=== PATIENT | female | born 1995 | race Caucasian/White ===

== ENCOUNTER 2017-12-03 08:21 | Day surgery (SDC) | payer BC, MEDICAID, SELFPAY ==
[2017-12-03 08:48] VITALS: BP 126/75; PULSE 78; RESP 16; TEMP 36.8; O2SAT 100; BMI 27.1
[2017-12-03 08:56] LABS: Absolute Lymphocyte Count 1.23 X10^3/ul (0.83-4.51); Basophil# 0.03 X10^3/uL; Basophil% 0.8 % (0-1); Eosinophil# 0.05 X10^3/uL; Eosinophils% 1.4 % (0-5); Hematocrit 38.9 % (37-47); Hemoglobin 12.6 g/dl (12.0-15.0); Lymphocyte # 1.23 X10^3/ul (4.0); Lymphocyte % 34.5 % (19-41); Mean Corp Hgb Conc 32.4 g/gl (32-36); Mean Corpuscular Hgb 29.6 pg (27.0-32.0); Mean Corpuscular Volume 91.3 fL (81-99); Mean Platelet Vol. 9.1 fl (6.2-12.0); Monocyte# 0.24 X10^3/uL; Monocyte% 6.7 % (0-10); Neutrophil # 2.02 X10^3/uL (2.7-7.7); Neutrophil % 56.6 % (47-70); POSITIVE COUNT NO; POSITIVE DIFFERENTIAL NO; POSITIVE MORPHOLOGY NO; Platelet Count 263 K/mm3 (150-450); RBC Distribution Width CV 16.9 % (11.6-14.6); RBC Distribution Width SD 55.9 fl (35.1-43.9); Red Blood Count 4.26 M/mm3 (4.2-5.4); White Blood Count 3.6 K/mm3 (4.4-11.0)
--- NOTE | 2017-12-03 09:34 | PCM.HP.STD ---
Problem List (1) PMS (premenstrual syndrome) Status: Chronic History of Present Illness Date of Admission: 12/03/17 Chief Complaint: pmdd The patient is a 21 year old F with a history of irregular menses and failed 3 other control therapies. Patient has Down syndrome and after discussing with her parents the decision for Mirena IUD placement was made. Patient has heavy painful periods with emotional changes that interfere with quality of life. Past Medical History Past Medical History (Chronic Problems): Chronic Problems (Last Reviewed 08/11/17 @ 14:34 by Genia Horn) Pulmonary stenosis (Chronic) VSD (ventricular septal defect) (Chronic) ASD (atrial septal defect) (Chronic) Lipoma (Chronic) Tympanic membrane perforation (Chronic) PMS (premenstrual syndrome) (Chronic) Dysmenorrhea (Chronic) Moderate persistent asthma (Chronic) Hypothyroidism (Chronic) CHF (congestive heart failure) (Chronic) Down's syndrome (Chronic) Complicates exam, plan, and care. Medical History: Medical History (Last Reviewed 08/11/17 @ 14:34 by Genia Horn) Pulmonary stenosis (Chronic) I37.0 VSD (ventricular septal defect) (Chronic) Q21.0 ASD (atrial septal defect) (Chronic) Q21.1 black outs in the morning (Acute) Lipoma (Chronic) D17.9 Tympanic membrane perforation (Chronic) H72.90 PMS (premenstrual syndrome) (Chronic) N94.3 Dysmenorrhea (Chronic) N94.6 Moderate persistent asthma (Chronic) J45.40 Hypothyroidism (Chronic) E03.9 CHF (congestive heart failure) (Chronic) I50.9 Down's syndrome (Chronic) Q90.9 Complicates exam, plan, and care. Allergies azithromycin [From Zithromax] Allergy (Verified 12/03/17 08:46) Other intense stomach cramping Cephalosporins Allergy (Verified 12/03/17 08:46) Hives Penicillins Allergy (Verified 12/03/17 08:46) Hives seasonal environmental Allergy (Uncoded 12/03/17 08:46) Other TAPE Allergy (Uncoded 12/03/17 08:46) Other skin breakout Home Medications: Ambulatory Orders Medication Instructions Recorded Levothyroxine [Synthroid] 50 mcg PO DAILY 03/03/14 Polyethylene Glycol 3350 [Miralax] 17 gm PO DAILY 03/03/14 albuterol sulfate HFA 90 1 puff INHALATION Q6H 08/11/17 mcg/actuation aerosol inhaler fexofenadine 180 mg tablet 180 mg PO Q24H 08/11/17 naproxen 250 mg tablet 440 mg PO BID 08/11/17 pimecrolimus 1 % topical cream 1 applic TOPICAL BID 08/11/17 albuterol sulfate 2.5 mg/3 mL 2.5 mg INHALATION Q4H PRN #180 ml 08/17/17 (0.083 %) solution for nebulization budesonide-formoterol HFA 160 2 puff INHALATION BID #1 ea 08/19/17 mcg-4.5 mcg/actuation aerosol inhaler Fluticasone/Salmeterol [Advair 1 puff INHALATION DAILY 11/30/17 500/50 Mcg Diskus] Metronidazole 45 gm TP DAILY 11/30/17 Prednisone 60 mg PO QDAY PRN 11/30/17 Surgical History: Surgical History (Last Updated 08/11/17 @ 14:34 by Genia Horn) H/O heart surgery Z98.890 Smoking Status: Never smoker Tobacco Use: Non-smoker Review of Systems Constitutional: Denies: Fever, Malaise Eyes: Denies: Blurred vision, Vision Change HEENT: Denies: Head Aches, Visual Changes Cardiovascular: Denies: Chest Pain, Palpitations Respiratory: Denies: Cough, Shortness of Breath, Wheezing Gastrointestinal: Denies: Abdominal Pain, Diarrhea, Nausea, Vomiting Genitourinary: Denies: Dysuria, Hematuria Musculoskeletal: Denies: Joint Pain, Muscle pain Skin: Denies: Lesions, Rash Neurological: Denies: Blurred vision, Focal weakness, Headaches Psychiatric: Denies: Anxiety, Depression Endocrine: Denies: Heat/ Cold Intolerance Hematologic/ Lymphatic: Denies: Easy Bruising, Easy Bleeding VTE Information - Inpt Only VTE Present on Admission: No - Physical Exam General: Alert, Cooperative HEENT: Atraumatic, EOMI, Normocephalic Neck: Supple Lungs: Clear to auscultation, Normal air movement Cardiovascular: Regular rate, No murmurs Abdomen: Soft, Non Tender Extremities: No edema, Capillary Refill Less than 3 Seconds Skin: No rashes, No breakdown Musculoskeletal: No Tenderness to Palpation of Joints or Extremities Neurological: Cranial nerves II-XII grossly intact Psych/Mental Status: Normal Affect, Appropriate Vital Signs Temp Pulse Resp BP Pulse Ox 98.2 F 78 16 126/75 H 100 12/03/17 08:48 12/03/17 08:48 12/03/17 08:48 12/03/17 08:48 12/03/17 08:48 Oxygen Delivery Method Room Air Weight: 134 lb 7.712 oz Body Mass Index (BMI) 27.1 Laboratory Tests Past 24 Hrs 12/03/17 12/03/17 08:46 08:46 WBC 3.6 L RBC 4.26 Hgb 12.6 Hct 38.9 MCV 91.3 MCH 29.6 MCHC 32.4 RDW 16.9 H RDW Differential 55.9 H Plt Count 263 MPV 9.1 Immature Gran % (Auto) 0.000 Neut % (Auto) 56.6 Lymph % (Auto) 34.5 Lea % (Auto) 6.7 Eos % (Auto) 1.4 Baso % (Auto) 0.8 Absolute Neuts (auto) 2.0 Absolute Lymphs (auto) 1.23 Total Counted Not Reportable Blood Type Pending Antibody Screen Pending Assessment/Plan All Active Problems (Last Reviewed 08/11/17 @ 14:34 by Genia Horn) Sinusitis, acute (Acute) black outs in the morning (Acute) 21-year-old with PMS and menstrual issues presents for IUD insertion. Plan IUD insertion and Pap smear.
[2017-12-03 10:25] VITALS: BP 125/93; BP 126/75; PULSE 72; RESP 14; TEMP 37.1; O2SAT 100
[2017-12-03 10:30] VITALS: BP 126/75; BP 145/90; PULSE 73; RESP 14; O2SAT 100
--- NOTE | 2017-12-03 10:32 | PCM.OPRPT ---
Problem List (1) PMS (premenstrual syndrome) Status: Chronic Report of Operation Date of Procedure: 12/03/17 Pre-Operative Diagnosis: irregular menses pms Post-Operative Diagnosis: same Surgery/Procedure Performed:: mirena iud insertion and pap smear Type of Anesthesia:: General Specimen's removed: none Drains: none Estimated Blood Loss (mL): 10 Fluids Replaced: crystalloid Description of Procedure: Patient was placed under general anesthesia and prepped and then placed in the dorsal lithotomy position. Pap smear was collected and then the cervix prepped with Betadine and the uterus sounded to 8 cm. Mirena device was successfully deployed and then upon cutting the suture the device was spontaneously expelled this was felt due to a faulty inserting device. A second Mirena device device was then opened and placed without difficulty and strings 4 cm. All instruments removed from the vagina and patient was taken to recovery in stable condition after being awoken Grafts/Implants Used: mirena iud - Complications none
--- NOTE | 2017-12-03 10:36 | PCM.DC.D&C ---
Discharge Diet: No Restrictions Discharge Activity: Return to Normal Activity, May Shower, May Take a Tub Bath Allergies/Adverse Reactions: Allergies azithromycin [From Zithromax] Allergy (Verified 12/03/17 08:46) Other intense stomach cramping Cephalosporins Allergy (Verified 12/03/17 08:46) Hives Penicillins Allergy (Verified 12/03/17 08:46) Hives seasonal environmental Allergy (Uncoded 12/03/17 08:46) Other TAPE Allergy (Uncoded 12/03/17 08:46) Other skin breakout Medications to take at Discharge Levothyroxine [Synthroid] 50 mcg PO DAILY 03/03/14 Polyethylene Glycol 3350 [Miralax] 17 gm PO DAILY 03/03/14 albuterol sulfate HFA 90 mcg/actuation aerosol inhaler 1 puff INHALATION Q6H 08/11/17 fexofenadine 180 mg tablet 180 mg PO Q24H 08/11/17 naproxen 250 mg tablet 440 mg PO BID 08/11/17 pimecrolimus 1 % topical cream 1 applic TOPICAL BID 08/11/17 albuterol sulfate 2.5 mg/3 mL (0.083 %) solution for nebulization 2.5 mg INHALATION Q4H PRN #180 ml 08/17/17 budesonide-formoterol HFA 160 mcg-4.5 mcg/actuation aerosol inhaler 2 puff INHALATION BID #1 ea 08/19/17 Fluticasone/Salmeterol [Advair 500/50 Mcg Diskus] 1 puff INHALATION DAILY 11/30/17 Metronidazole 45 gm TP DAILY 11/30/17 Prednisone 60 mg PO QDAY PRN 11/30/17 Primary Care Physician: Neyda Jimenez MD [Primary Care Provider] - Test Results: Test results from this visit will be discussed in further detail at your follow-up appointment, if applicable. Please Follow Up With: Jaylene Ang MD - [phone]
[2017-12-03 10:44] VITALS: BP 115/91; BP 126/75; PULSE 71; RESP 14; TEMP 37; O2SAT 100
[2017-12-03 11:31] VITALS: BP 111/71; BP 126/75; PULSE 76; RESP 18; TEMP 36.7; O2SAT 100
[2017-12-08 10:31] LABS: HPV Reflexed? NOT INDICATED
== END 2017-12-03 11:40 | disposition home or self-care (01) ==
LOC: SDC 08:22 → AC 08:25
PROVIDERS: Family Provider Internal Medicine; PCP Internal Medicine; Visit Provider Obstetrics & Gynecology
PROC: 0UJD8ZZ Inspection of Uterus and Cervix, Via Natural or Artificial Opening Endoscopic (ICD-10-PCS; CPT 58555; principal; 2017-12-03 09:45)
DX: N94.3 Premenstrual tension syndrome (principal); N92.5 Other specified irregular menstruation; J45.40 Moderate persistent asthma, uncomplicated; I50.9 Heart failure, unspecified; E03.9 Hypothyroidism, unspecified; Q90.9 Down syndrome, unspecified; Q21.0 Ventricular septal defect; Q21.1 Atrial septal defect; Q25.6 Stenosis of pulmonary artery; Z79.899 Other long term (current) drug therapy; Z87.74 Personal history of (corrected) congenital malformations of heart and circulatory system
CPT/HCPCS: 58300; 85025; 86850; 86900; 88175; J7120; G0145; J2405

== ENCOUNTER → 2019-09-20 14:15 | Outpatient (CLI) | payer BC, MEDICAID, SELFPAY ==
[2019-09-20 15:05] VITALS: BMI 28.6
== END ==
PROVIDERS: PCP Internal Medicine; Visit Provider Nurse Practitioner Women's Health
DX: N76.0 Acute vaginitis (principal)
CPT/HCPCS: 87070; 87077; 87186; 87205

== ENCOUNTER → 2019-11-14 15:12 | Outpatient (CLI) | payer BC, MEDICAID, SELFPAY ==
[2019-11-02 12:52] VITALS: BMI 28.6
--- NOTE | 2019-11-14 16:05 | RAD_ITS ---
STUDY: X-RAY CHEST REASON FOR EXAM: Female, 23 years old. PATIENT IS POSITIVE FOR COVID. TECHNIQUE: Frontal and lateral views of the chest. COMPARISON: 03-03-14. FINDINGS: Normal lung volumes. Mild hazy infiltrates seen in the right lung base, left perihilar region and left lung base. Findings are nonspecific but could represent multifocal pneumonia. Normal size heart. Previous median sternotomy. Normal mediastinum and cindi. Normal visualized pulmonary arteries. Normal visualized aortic arch and descending thoracic aorta. Normal visualized thoracic spine. Normal visualized ribs, clavicles, and shoulders. There is no demonstrated abnormality of the visualized soft tissue structures of the upper abdomen. RAD/Chest PA and Lateral IMPRESSION: Probable nonspecific multifocal pneumonia in the right lung base, left mid lung and left lung base. Electronically Signed: Glenroy Solorzano MD at 16:33 EDT , Service support ,
== END ==
PROVIDERS: PCP Internal Medicine; Visit Provider Internal Medicine
DX: U07.1 COVID-19 (principal)
CPT/HCPCS: 71046

== ENCOUNTER → 2019-11-21 14:52 | Outpatient (CLI) | payer BC, MEDICAID, SELFPAY ==
[2019-11-02 12:52] VITALS: BMI 28.6
--- NOTE | 2019-11-24 16:03 | RAD_ITS ---
STUDY: X-RAY CHEST REASON FOR EXAM: Female, 23 years old. POST COVID HAVING CHEST PAINS TECHNIQUE: Frontal and lateral views of the chest. COMPARISON: 11/14/2019. FINDINGS: The lungs are clear and expanded. There is no demonstrated pleural abnormality. Sternal cerclage wires are present from a prior sternotomy. Normal heart size. Normal mediastinum and cindi. Normal visualized pulmonary arteries. Normal visualized aortic arch and descending thoracic aorta. Normal visualized thoracic spine. Normal visualized ribs, clavicles, and shoulders. There is no demonstrated abnormality of the visualized soft tissue structures of the upper abdomen. RAD/Chest PA and Lateral IMPRESSION: No definite acute or significant abnormality seen. Electronically Signed: Glenroy Solorzano MD at 20:14 EDT , Service support ,
== END ==
PROVIDERS: PCP Internal Medicine; Referring Provider Clinical Nurse Specialist; Visit Provider Clinical Nurse Specialist
DX: U07.1 COVID-19 (principal); J18.9 Pneumonia, unspecified organism
CPT/HCPCS: 71046

== ENCOUNTER → 2019-11-28 17:52 | Outpatient (CLI) | payer BC, MEDICAID, SELFPAY ==
[2019-11-02 12:52] VITALS: BMI 28.6
== END ==
PROVIDERS: PCP Internal Medicine; Referring Provider Clinical Nurse Specialist; Visit Provider Clinical Nurse Specialist
DX: U07.1 COVID-19 (principal); J18.9 Pneumonia, unspecified organism
CPT/HCPCS: 87635; 94799; U0003

== ENCOUNTER → 2019-11-29 18:01 | Outpatient (CLI) | payer BC, MEDICAID, SELFPAY ==
[2019-11-02 12:52] VITALS: BMI 28.6
== END ==
PROVIDERS: PCP Internal Medicine; Referring Provider Clinical Nurse Specialist; Visit Provider Clinical Nurse Specialist
DX: U07.1 COVID-19 (principal); J18.9 Pneumonia, unspecified organism
CPT/HCPCS: 87635; 94799; U0003

== ENCOUNTER → 2019-12-05 18:24 | Outpatient (CLI) | payer BC, MEDICAID, SELFPAY ==
[2019-11-02 12:52] VITALS: BMI 28.6
== END ==
PROVIDERS: PCP Internal Medicine; Referring Provider Clinical Nurse Specialist; Visit Provider Clinical Nurse Specialist
DX: U07.1 COVID-19 (principal); J18.9 Pneumonia, unspecified organism
CPT/HCPCS: 87635; 94799; U0003

== ENCOUNTER → 2021-03-21 09:25 | Outpatient (CLI) | payer MEDICAID, SELFPAY ==
[2021-03-21 09:38] LABS: Absolute Lymphocyte Count 1.05 X10^3/uL (0.83-4.51); Absolute Neutrophil Count 2.5 X10^3/uL (2.0-7.7); Basophil# 0.05 X10^3/uL; Basophil% 1.3 % (0-1); Eosinophil# 0.08 X10^3/uL; Hematocrit 42.7 % (37-47); Hemoglobin 14.8 g/dL (12.0-15.0); Lymphocyte # 1.05 X10^3/ul (0.83-4.51); Lymphocyte % 26.7 % (19-41); Mean Corp Hgb Conc 34.7 g/dL (32-36); Mean Corpuscular Hgb 34.1 pg (27.0-32.0); Mean Corpuscular Volume 98.4 fL (81-99); Mean Platelet Vol. 9.1 fl (6.2-12.0); Monocyte# 0.26 X10^3/uL; Monocyte% 6.6 % (0-10); NRBC Flagged by Analyzer 0 % (0-5); Neutrophil # 2.48 X10^3/uL (2.7-7.7); Neutrophil % 63.1 % (47-70); Platelet Count 229 K/mm3 (150-450); RBC Distribution Width CV 12.6 % (11.6-14.6); RBC Distribution Width SD 46.4 fl (35.1-43.9); Red Blood Count 4.34 M/mm3 (4.2-5.4); White Blood Count 3.9 K/mm3 (4.4-11.0)
[2021-03-21 10:00] LABS: T4 Free Direct 1.05 ng/dL (0.76-1.46); Thyroid Stim Hormone (TSH) 1.92 uIU/mL (0.358-3.74)
== END ==
PROVIDERS: PCP Internal Medicine; Referring Provider Obstetrics & Gynecology; Visit Provider Obstetrics & Gynecology
DX: N93.9 Abnormal uterine and vaginal bleeding, unspecified (principal)
CPT/HCPCS: 36415; 84439; 84443; 85025

== ENCOUNTER → 2021-03-22 14:03 | Outpatient (CLI) | payer MEDICAID, SELFPAY ==
--- NOTE | 2021-03-22 14:04 | US_ITS ---
STUDY: ULTRASOUND OF THE FEMALE PELVIS - COMPLETE REASON FOR EXAM: Female, 25 years old. pelvic only, NO TRANSVAG LMP: Unknown. TECHNIQUE: Transabdominal TECHNICAL QUALITY: Adequate. COMPARISON: None. FINDINGS: The uterus is anteverted and is tilted to the right side of the pelvis. The uterus measures 6.8 x 4.5 x 3.4 cm. There is a Nabothian cyst of the cervix. The endometrium measures 6.0 mm in thickness, and is hyperechoic. There is no demonstrated endometrial mass. There is no demonstrated myometrial mass. I.U.D. - The patient does have an I.U.D. there is abnormal location of the IUD along the lower uterine segment/cervix. The right ovary is visualized. The right ovary measures 2.6 x 3.1 x 3.0 cm. There is no right ovarian cyst or ovarian mass. There is no visualized right adnexal mass or complex lesion. There is normal arterial and normal venous vascularity. The left ovary is visualized. The left ovary measures 3.2 x 2.5 x 2.0 cm. There is no left ovarian cyst or ovarian mass. There is no visualized left adnexal mass or complex lesion. There is normal arterial and normal venous vascularity. There is no fluid in the cul-de-sac. The volume of the bladder was 856 ml. US/Pelvic (Non ) IMPRESSION: Low location of the IUD within the cervix and lower uterine segment, follow-up with [facility] consultation for repositioning recommended. Remainder of the pelvis ultrasound unremarkable. Electronically Signed: Aurea Jurado MD at 2:33 EST , Service support ,
== END ==
PROVIDERS: PCP Internal Medicine; Visit Provider Obstetrics & Gynecology
DX: N93.9 Abnormal uterine and vaginal bleeding, unspecified (principal)
CPT/HCPCS: 76856

== ENCOUNTER 2021-04-23 06:53 | Day surgery (SDC) | payer MEDICAID, SELFPAY ==
--- NOTE | 2021-04-17 09:01 | EKG12_ITS ---
Test Reason : LAVH Blood Pressure : / mmHG Vent. Rate : 074 BPM Atrial Rate : 074 BPM P-R Int : 122 ms QRS Dur : 054 ms QT Int : 384 ms P-R-T Axes : 062 012 -14 degrees QTc Int : 426 ms Normal sinus rhythm ST & T wave abnormality, consider inferior ischemia Abnormal ECG Confirmed by SERGIO MARTINEZ, DESHAUN ([id number]), newspaper copy editor LAURO SPENCE ([id number]) on 04/18/2021 9:03:38 AM Referred By: Jaylene Ang Confirmed By:DESHAUN HILL MD
[2021-04-17 10:02] LABS: Absolute Lymphocyte Count 1.02 X10^3/uL (0.83-4.51); Absolute Neutrophil Count 2.4 X10^3/uL (2.0-7.7); Basophil# 0.04 X10^3/uL; Eosinophil# 0.06 X10^3/uL; Eosinophils% 1.6 % (0-5); Hematocrit 40.9 % (37-47); Hemoglobin 14.2 g/dL (12.0-15.0); Lymphocyte # 1.02 X10^3/ul (0.83-4.51); Lymphocyte % 26.6 % (19-41); Mean Corp Hgb Conc 34.7 g/dL (32-36); Mean Corpuscular Hgb 34.3 pg (27.0-32.0); Mean Corpuscular Volume 98.8 fL (81-99); Mean Platelet Vol. 9.4 fl (6.2-12.0); Monocyte# 0.28 X10^3/uL; Monocyte% 7.3 % (0-10); NRBC Flagged by Analyzer 0 % (0-5); Neutrophil # 2.43 X10^3/uL (2.7-7.7); Neutrophil % 63.2 % (47-70); Platelet Count 236 K/mm3 (150-450); RBC Distribution Width CV 12.8 % (11.6-14.6); RBC Distribution Width SD 46.7 fl (35.1-43.9); Red Blood Count 4.14 M/mm3 (4.2-5.4); White Blood Count 3.8 K/mm3 (4.4-11.0)
[2021-04-17 10:45] LABS: Anion Gap 5 (5-15); BUN 14 mg/dL (7-18); BUN/Creat Ratio 17.7 RATIO (10-20); Calcium,Total 8.7 mg/dL (8.5-10.1); Chloride 107 mmol/L (98-107); Creatinine, Serum 0.79 mg/dL (0.55-1.02); EST Glomerular Filtration Rate 93 mL/min (>60); Est Glom Filt Rate - Afr Amer 112 mL/min (>60); Glucose 88 mg/dL (74-106); Potassium 4.1 mmol/L (3.5-5.1); Sodium Level 141 mmol/L (136-145)
[2021-04-23] VITALS (13 sets, daily range): BP systolic 85–118; BP diastolic 42–73; PULSE 57–95; RESP 14–18; TEMP 35.7–36.7; O2SAT 97–100; BMI 28.5
[2021-04-23] MEDS: Gabapentin 600 MG Tablet PO (07:00)
--- NOTE | 2021-04-23 07:05 | PCM.HP.BLA ---
History and Physical Date of Admission: 04/23/21 Visit Reasons: LIPOMA RIGHT LOWER SCAPULA Chief Complaint: VB with IUD Allergies azithromycin [From Zithromax] Allergy (Verified 04/02/21 14:15) Other Cephalosporins Allergy (Verified 04/02/21 14:15) Hives Penicillins Allergy (Verified 04/02/21 14:15) Hives seasonal environmental Allergy (Uncoded 04/02/21 14:15) Other TAPE Allergy (Uncoded 04/02/21 14:15) Other Medications levothyroxine 50 mcg PO DAILY 03/03/14 [History Confirmed 04/02/21] polyethylene glycol 3350 17 gm PO DAILY 03/03/14 [History Confirmed 04/02/21] pimecrolimus 1 % topical cream 1 applic TOPICAL BID 08/11/17 [History Confirmed 04/02/21] pediatric inhaler mask #1 ea 05/05/18 [Rx Confirmed 04/02/21] spacer #1 ea 05/05/18 [Rx Confirmed 04/02/21] albuterol sulfate 2.5 mg INHALATION Q4H PRN #180 ml 11/02/19 [Rx Confirmed 04/02/21] fluoxetine 20 mg capsule 20 mg PO DAILY 03/21/21 [History Confirmed 04/02/21] levonorgestrel 20 mcg/24 hours (7 yrs) 52 mg intrauterine device 1 insert INTRAUTERINE ONCE 03/21/21 [History Confirmed 04/02/21] PFSH Medical History ASD (atrial septal defect) black outs in the morning CHF (congestive heart failure) Down's syndrome Dysmenorrhea Hypothyroidism Lipoma Moderate persistent asthma PMS (premenstrual syndrome) Pulmonary stenosis Subcutaneous mass Tympanic membrane perforation VSD (ventricular septal defect) Surgical History H/O heart surgery IUD insertion under anesthesia Family History Mother Allergic arthritis Father Allergic arthritis Brother Allergic arthritis Grandfather Cancer Bladder Grandmother Breast cancer Social History adopted: No household members: family housing: house current occupational exposures/hazards: No Smoking Status: Never smoker second hand exposure: No alcohol intake: never substance use type: does not use HPI HPI HPI: EAN ROMERO, is a 25 F who presents to the office today for ongoing surgical consultation regarding enlarging subcutaneous mass right scapular back. My most recent visit with her was July 06. At that point notation was made that had actually seen her prior to that and at her most recent visit there had been significant growth in the right scapular subcutaneous mass. Benefit wrist removal was discussed for definitive diagnosis. Because it requires a general anesthetic due to the size this caused a delay. There is some interest because it is felt that it is continuing to grow. In addition Dr. Jaylene Ang is recommending that the patient has a hysterectomy. This may be vaginal or laparoscopic assisted. This procedure will require general anesthetic and it is hoped that we can combine efforts at the same setting. ROS General General: No weight change, appetite, fatigue, colon cancer, breast cancer or weakness HEENT HEENT: No difficulty swallowing, eye injury, eye surgery, swollen glands or hoarseness Endo Endocrine: Yes thyroid disease; No diabetes mellitus, thyroid cancer, Hair loss, heat intolerance or cold intolerance Skin Skin: No rash or changing moles Breast Breast: No left breast lump, right breast lump, nipple discharge, breast pain, abnormal mammogram, abnormal US or breast enlargement Musc Musculoskeletal: No back problems, arthritis, rheumatoid arthritis, gout or joint pain Cardio Cardiovascular: No murmur, pacemaker, heart disease, atrial fibrillation, high blood pressure, heart attack, heart stent, palpitations, shortness of breat with exertion or chest pain Psych Psychiatric: No depression, anxiety or hearing voices Resp Respiratory: No shortness of breath, No sleep apnea, No cough, No COPD, Yes asthma, No emphysema and No wheezing Gastro Gastrointestinal: No abdominal pain, No nausea or vomiting, No diarrhea, No constipation, No blood in stool, No acid reflux, No hemorrhoids, No ulcers, No gallbladder problem and No black,tarry stools Teo Hematologic: No blood thinners, No blood disorders, No bleeding, No anemia and No blood clots Neuro Neurologic: No system reviewed and no additional complaints, except as documented, No as per HPI, No abnormal gait, No abnormal hearing, No abnormal movements, No abnormal speech, No behavioral changes, No burning sensations, No confusion, No convulsions, No disequilibrium, No dizziness, No localized weakness, No frequent falls, No headache(s), No lack of coordination, No loss of vision, No memory loss, No numbness, No other visual disturbances, No radicular pain, No restless legs, No sensory deficit, No syncope, No tingling, No tremor(s), No weakness and No other Exam Const General: cooperative, healthy appearing and comfortable Nutritional Appearance: average body habitus [facility] Head: normal to inspection Eyes General: appearance normal, both eyes and all related structures Chest Other: Right scapular back quite large fixed subcutaneous mass. Nontender. Would expect dense past the scapula on the right and all the way to the medial edge. Resp Effort & Inspection: normal respiratory effort Auscultation: clear to auscultation bilaterally Cardio Rate: regular rate Rhythm: regular rhythm Extrem General: no calf tenderness Assessment and Plan Assessment and Plan (1) Subcutaneous mass: Status: Acute Comment: may do combo surgery, fu with Dr Griffin Plan Details Additional Comments: Large subcutaneous mass right scapular back. I do concur with the patient's family's concerns and Dr. Elier Perkins that if the patient will already be under a general anesthetic that excision of this item at that same setting would be very pertinent due to its size and need for definitive diagnosis. My understanding at this time is that we will try to add on to Dr. Jaylene Ang schedule when she arranges for the hysterectomy. Copy: Dr. Jaylene Ang and Dr. Neyda Griffin M.D., F.A.C.S. I have re-examined the patient. There are no clinical changes since date of exam.
--- NOTE | 2021-04-23 07:29 | PCM.HP.BLA ---
History and Physical Date of Admission: 04/23/21 Intake Visit Reasons: bleeding concerns with IUD Chief Complaint: VB with IUD User Acceptance Tester Required: No Is patient in pain?: No Allergies azithromycin [From Zithromax] Allergy (Verified 03/21/21 08:24) Other Cephalosporins Allergy (Verified 03/21/21 08:24) Hives Penicillins Allergy (Verified 03/21/21 08:24) Hives seasonal environmental Allergy (Uncoded 03/21/21 08:24) Other TAPE Allergy (Uncoded 03/21/21 08:24) Other Medications levothyroxine 50 mcg PO DAILY 03/03/14 [History Confirmed 03/21/21] polyethylene glycol 3350 17 gm PO DAILY 03/03/14 [History Confirmed 03/21/21] albuterol sulfate 90 mcg/actuation aerosol inhaler 1 puff INHALATION Q6H 08/11/17 [History Confirmed 03/21/21] fexofenadine 180 mg tablet 180 mg PO Q24H 08/11/17 [History Confirmed 03/21/21] pimecrolimus 1 % topical cream 1 applic TOPICAL BID 08/11/17 [History Confirmed 03/21/21] pediatric inhaler mask #1 ea 05/05/18 [Rx Confirmed 03/21/21] spacer #1 ea 05/05/18 [Rx Confirmed 03/21/21] albuterol sulfate 2.5 mg INHALATION Q4H PRN #180 ml 11/02/19 [Rx Confirmed 03/21/21] fluoxetine 20 mg capsule 20 mg PO DAILY 03/21/21 [History Confirmed 03/21/21] levonorgestrel 20 mcg/24 hours (7 yrs) 52 mg intrauterine device 1 insert INTRAUTERINE ONCE 03/21/21 [History Confirmed 03/21/21] Is last menstrual period known: No Post menopausal: No Patient : No : No [facility] Medical History (Updated 03/21/21 @ 09:[address] Jaylene Ang MD) ASD (atrial septal defect) black outs in the morning CHF (congestive heart failure) Down's syndrome Dysmenorrhea Hypothyroidism Lipoma Moderate persistent asthma PMS (premenstrual syndrome) Pulmonary stenosis Subcutaneous mass Tympanic membrane perforation VSD (ventricular septal defect) Surgical History H/O heart surgery IUD insertion under anesthesia Family History Mother Allergic arthritis Father Allergic arthritis Brother Allergic arthritis Grandfather Cancer Bladder Grandmother Breast cancer Social History adopted: No household members: family housing: house current occupational exposures/hazards: No Smoking Status: Never smoker second hand exposure: No alcohol intake: never substance use type: does not use HPI bleeding concerns with IUD Details: EAN ROMERO is a 25 year old who presents for irregular bleeding. she is bleeding two weeks out of the month and irregular. she has been through an OCP, nexplanon, and now the IUD and is still having persistent AUB. some bleeding is enough for a pantiliner others for a pad. she has pads changed every few hours. she takes naprosyn as needed. she is not planning childbearing and both parents have been considering hysterectomy for years. Female Reproductive History Menopausal Symptoms: No night sweats Pregancy History 0 Elective abortions Hx Para Spontaneous abortions Hx # Term Pregnancies Ectopic pregnancies Hx # Pregnancies Multiple births # of living children ROS Const Constitutional: Denies fatigue, night sweats, weight gain or weight loss ENT ENT: Reports system reviewed and no additional complaints, except as documented Cardio Card: Denies chest pain Resp Resp: Denies cough or dyspnea GI GI: Reports as per HPI and change in stool character (softer); Denies abdominal pain, constipation, nausea or vomiting : Denies nipple discharge, urinary frequency, urinary incontinence, urinary hesitancy, urinary urgency, vaginal discharge, vaginal dryness, vaginal odor or vaginal pruritus Musc Musc: Denies arthralgias, back pain or muscle weakness Skin Skin/Breast: Denies alopecia, change in hair, dry skin, breast mass, breast pain, breast skin changes or nipple discharge Neuro Neuro: Reports system reviewed and no additional complaints, except as documented Psych Psych: Reports system reviewed and no additional complaints, except as documented Endo Endo: Denies cold intolerance, excessive sweating, heat intolerance or polydipsia Teo/Lymph Hematologic/Lymphatic: Denies easy bleeding, Denies easy bruising and Denies lymphadenopathy Exam Const General: cooperative, healthy appearing, comfortable, no acute distress and well developed Orientation: alert HENKY Head: normal to inspection and normocephalic Ears: hearing grossly normal bilaterally and external ears normal Nose: external nose normal and nares normal Face and sinus: normal facial exam Neck Neck: normal visual inspection and no lymphadenopathy Thyroid: thyroid normal Chest Chest palpation & inspection: normal inspection of the chest Resp Effort & Inspection: normal respiratory effort Auscultation: clear to auscultation bilaterally Cardio Rate: regular rate Rhythm: regular rhythm Heart Sounds: S1 normal and S2 normal GI Inspection: normal to inspection and non-distended Palpation: soft and no hepatosplenomegaly Musc Other: gross motor intact no deficits, full bilateral strength Skin General: no rashes or lesions noted Neuro General: patient alert, patient awake, moves all extremities and no focal motor deficits Motor: muscle tone normal throughout Extrem General: normal to inspection and no pedal edema Psych Appearance: grossly normal Mental Status: mental status grossly normal Affect: normal affect Speech and Movement: speech and movement normal Coding Level of Care Code Off vis,est,level 5 Diagnoses Dysmenorrhea N94.6 Down's syndrome Q90.9 Abnormal uterine bleeding N93.9 PMS (premenstrual syndrome) N94.3 Hypothyroidism E03.9 Subcutaneous mass R22.9 Assessment and Plan Assessment and Plan (1) Dysmenorrhea: Status: Chronic Comment: ocp, nexplanon, iud (2) Down's syndrome: Status: Chronic Comment: Complicates exam, plan, and care. (3) Abnormal uterine bleeding: Status: Acute Comment: failed OCP, nexplanon, and IUD. cbc tsh us ordered, plan LAVH possible TVH (4) PMS (premenstrual syndrome): Status: Chronic (5) Hypothyroidism: Status: Chronic Comment: tsh free t4 ordered (6) Subcutaneous mass: Status: Acute Comment: may do combo surgery, fu with Dr Griffin Plan - Dr. Jaylene Ang MD: After discussing the patient's diagnosis and treatment plan options, patient wishes to proceed with surgical management. I have discussed with the patient the risks, benefits, and alternatives of the procedure which include but are not limited to risks of anesthesia, bleeding, infection, possible damage to bowel, bladder, or surrounding vasculature which could lead to additional surgery to evaluate any complications. Patient agrees to procedure and wishes to proceed. ACOG/uptodate references given for additional information regarding procedure. UPDATE- I have seen the patient and performed any clinically relevant updates to the history and physical exam. Jaylene Ang MD
[2021-04-23 07:32] LABS: Internal QC Validated? YES +Cl - CLEAR BKGD; Pregnancy, Urine Negative Negative
[2021-04-23] MEDS: Enoxaparin 40 MG/0.4 ML Syringe SC (07:51)
[2021-04-23] MEDS: Lactated Ringers 1,000 ML 40 ML IV ×3 (07:51→10:45)
[2021-04-23] MEDS: Scopolamine 1mg/72hr Patch 1 PATCH TD (07:52)
[2021-04-23] MEDS: Celecoxib 200 MG Capsule 400 MG PO (07:54)
[2021-04-23] MEDS: Phenazopyridine 95 MG Tablet 190 MG PO (07:54)
[2021-04-23] MEDS: dexAMETHasone 10 MG/ML Vial 8 MG IV (07:54)
[2021-04-23 08:10] LABS: Bedside Glucose 94 mg/dL (70-110)
--- NOTE | 2021-04-23 08:55 | HYST_PTH ---
PATIENT: EAN ROMERO [place] [facility] [id number] AGE/SX: 25/F ROOM: RE04/23/[address]: Dr. Jaylene Ang MD : 1995 BED: DIS: 04/23/2021 SPEC #: [id number] RECD: 04/23/21 13:45 STATUS: RAOUL REBetty #: [id number] NAN: 04/23/21 08:[address]: Jaylene Ang DEPT: SURGICAL PATHOLOGY RECD BY: Katt Raymond ENTERED: 04/24/21 07:58 SP TYPE: HYSTERECT OTHR DR: MD Dr. Toni Maria MD Tissues: A - Uterus, NOS B - Soft tissues, NOS Procedures: Surgery Specimen Level III Surgery Specimen Level V HEADER OPERATION: ERAS, hysterectomy, laparoscopic-assisted vaginal hysterectomy PRE-OP DIAGNOSIS: Dysmenorrhea, abnormal uterine bleeding, premenstrual syndrome TISSUE SUBMITTED: A ? Uterus, cervix, bilateral fallopian tubes, B ? Right scapular lipoma MICROSCOPIC DIAGNOSIS A. Uterus, hysterectomy: Cervix ? nabothian cysts and minimal chronic inflammation. Endometrium ? proliferative endometrium. Myometrium ? no pathologic change Right fallopian tube - no pathologic change. Left fallopian tube - no pathologic change. B. Right scapular lipoma, excision: Mature adipose tissue consistent with lipoma. AM:arabella 04/25/2021 MICROSCOPIC DESCRIPTION Slides are reviewed. GROSS DESCRIPTION A - Received in fixative is one container labeled with the patient's name and designated uterus. The specimen consists of a uterus with attached cervix and attached right and left fallopian tubes. The uterus with cervix measures 8.5 x 5.5 x 3.7 cm and weighs 62 gm. The ectocervix is oval in contour and grossly unremarkable. The endocervical canal measures 3.5 cm in length. The triangular endometrial cavity measures 3 x 2 cm. The light delgado endometrium measures up to 0.2 cm in thickness. The myometrium measures 1.5 cm in average thickness and is free of mass lesions. The right and left fallopian tubes are similar in appearance with average length of 6.5 cm and average diameter of 0.7 cm. The fimbrial ends are noted and appear grossly unremarkable. Paper Guillotine Operator sections are submitted in eight cassettes as follows: 1 - anterior cervix, 2 - posterior cervix, 3 & 4 - anterior uterine wall, 5 & 6 - posterior uterine wall, 7 - right fallopian tube, 8 - left fallopian tube. B - Received in fixative is one container labeled with the patient's name and designated right scapular lipoma. The specimen consists of three irregular fragments of yellow fibrofatty tissue ranging in size from 2 to 10 cm. Serial sections reveal homogenous yellow cut surfaces without areas of cyst formation, necrosis or myxoid change. Paper Guillotine Operator sections are submitted in two cassettes. / AM:arabella 04/24/21 TC:1 CPT: 24100, 62190
--- NOTE | 2021-04-23 09:26 | PCM.OPRPT ---
Problems Associated Problem List Diagnoses (1) Abnormal uterine bleeding: (2) Subcutaneous mass: (3) PMS (premenstrual syndrome): (4) Dysmenorrhea: (5) Down's syndrome: Report of Operation Pre-Operative Diagnosis: AUB Post-Operative Diagnosis: same Surgery/Procedure Performed:: LAVHBS Type of Anesthesia: General Specimen's removed: uterus, tubes Drains: nelson Fluids Replaced: crystalloid Description of Procedure: Patient received preoperative antibiotics and SCDs were on preoperatively. Patient was taken back to the operating room and placed in the dorsal lithotomy position. General anesthesia was induced and patient was prepped and draped in normal sterile fashion. Uterine manipulator was placed inside the uterus and Nelson catheter placed in the bladder. The umbilicus was grasped with towel clamps and an intraumbilical incision was made after injecting with quarter percent Marcaine and a Veress needle entered into the abdomen confirmed to be intra-abdominal with a low opening pressure. Abdomen was insufflated with CO2 gas and the Veress needle removed and the 5 mm trocar was unable to be placed under direct visualization therefore using the dinesh technique a 12 mm umbilical port was placed. Right and left lower quadrants were transilluminated and injected with quarter percent Marcaine and 5 mm ports placed under direct visualization. Pelvis was well visualized see operative findings for additional information. Bilateral fallopian tubes were identified and transected with the LigaSure device across the mesosalpinx to the level of the utero-ovarian ligament which was also transected with the LigaSure device. The broad ligament was opened up by transecting the round ligament bilaterally and skeletonizing the uterine vessels bilaterally and creating a bladder flap using the LigaSure device. The uterine arteries were transected bilaterally with good visualization of the bladder and the ureters were seen to be inferior lateral to the operative area. Attention was then paid to the vaginal portion of the procedure and the cervix was grasped with Aidee clamps and circumferentially injected with dilute vasopressin. A circumferential incision was made and the vaginal mucosa was mobilized off posteriorly and the cul-de-sac entered into sharply and a longneck speculum placed. The anterior cul-de-sac was then identified and entered into sharply. The uterosacral ligaments were clamped cut and suture ligated with 0 Monocryl bilaterally followed by the cardinal ligaments which were clamped cut and suture ligated bilaterally with 0 Monocryl. The uterus serially descended and was removed without difficulty. Pelvic sidewall pedicles were checked and noted to have excellent hemostasis. The vaginal mucosa was reapproximated incorporating the posterior peritoneum. This was reapproximated using 0 Vicryl [id number] sutures. Excellent hemostasis was noted. The pelvis and cul-de-sac were well visualized and no significant active bleeding noted but some raw areas were seen on the peritoneum and therefore Yandy was applied. Pressure was taken down and the areas visualized and noted of excellent hemostasis. All ports were removed under direct visualization without complication and the abdomen was desufflated of air. The instruments were removed from the abdomen and the vaginal sweep was negative. Port sites on the abdomen were closed with 4-0 Monocryl interrupted sutures and Steri's and windows were applied. She was awoken and taken recovery in stable condition. Grafts/Implants Used: none Complications none Admit VTE Documentation VTE Present on Admission: No VTE Mechan Device Prophylaxis: SCD's VTE Pharm Prophylaxis ordered?: Yes Procedures Urinary/Genital [id number]: 96751 LAVH+BS/O <250gr Uterus
--- NOTE | 2021-04-23 09:26 | EX.PCM.DISCH ---
Discharge Instructions Diet Discharge Diet: No restrictions Activity May resume sexual activity in: 6 weeks Weight Bearing Status: Full weight bearing Dressing / Incision Call your doctor if your incision/area has: Continuous Slow Oozing, Sudden Increased Bleeding, Increased Pain/ Swelling, Increased Redness and Foul Smelling Discharge Call your doctor if you observe: Fever of 101 or Higher, Using more than 1 pad per hour, Shortness of breath, Chest pain and Uncontrolled pain Suture Line Care: Avoid Pulling/Pushing and Avoid Pinching/Bending Remove Dressing in: 1 week (if present) Cleanse incision/area with: Soap & Water and Keep Dressing Clean & Dry Follow Up Care Please Follow Up With: Jaylene Ang MD When: Call to make an appointment with your doctor for a postop visit in 2 and 6 weeks. Test Results: Test results from this visit will be discussed in further detail at your follow-up appointment, if applicable. Discharge Plan Admission Primary Reason for Your Visit: hysterectomy Attending Provider: Jaylene Ang Primary Care Provider: Neyda Jimenez Consulting Providers: Toni Griffin Discharge Orders/Prescriptions Prescriptions: New oxycodone-acetaminophen [Percocet] 5-325 mg tablet 1 tab PO Q6H PRN (Reason: pain) 7 Days Qty: 20 RF: 0 naproxen [naproxen] 500 MG tablet 500 mg PO BID PRN PRN (Reason: Pain) Qty: 30 RF: 1 docusate sodium [Colace] 100 mg capsule 100 mg PO BID Qty: 60 RF: 0 Continued pimecrolimus [Elidel] 1 % cream 1 applic TOPICAL BID RF: 0 albuterol sulfate 2.5 mg /3 mL (0.083 %) solution for nebulization 2.5 mg INHALATION Q4H PRN (Reason: shortness of breath or wheezing) Qty: 180 RF: 6 fluoxetine [Prozac] 20 mg capsule 20 mg PO DAILY RF: 0 polyethylene glycol 3350 17 GM packet 17 gm PO DAILY RF: 0 levothyroxine 50 MCG tablet 50 mcg PO DAILY RF: 0 (DME) pediatric inhaler mask Qty: 1 RF: 0 (DME) spacer Qty: 1 RF: 0 No Action Mirena 20 mcg/24 hours (7 yrs) 52 mg intrauterine device 1 insert intrauterine ONCE RF: 0 Referrals / Follow Up: Neyda Jimenez MD [Primary Care Provider] - Disposition Disposition (needs filled in before D/C Order can be placed): Home, Self Care
[2021-04-23] MEDS: Vasopressin 20 UNITS/ML Vial (09:45)
--- NOTE | 2021-04-23 10:47 | EX.PCM.DISCH ---
Discharge Instructions Procedure General Surgery Diet Discharge Diet: No restrictions Activity Discharge Activity: May Not Drive (for 3-5 days or while taking narcotic pain medicine.) May shower in (days): 5 May resume sexual activity in: 6 weeks Weight Bearing Status: Full weight bearing Lifting Restrictions: 10 pounds Additional Activity Instructions:: A change dressings daily. Cleanse drain site with Q-tip and peroxide. Applied dry gauze and tape. Please keep this area clean and dry until after the drain is removed. Dressing / Incision Call your doctor if your incision/area has: Continuous Slow Oozing, Sudden Increased Bleeding, Increased Pain/ Swelling, Increased Redness and Foul Smelling Discharge Call your doctor if you observe: Fever of 101 or Higher, Using more than 1 pad per hour, Shortness of breath, Chest pain and Uncontrolled pain Suture Line Care: Avoid Pulling/Pushing and Avoid Pinching/Bending Cleanse incision/area with: Keep Dressing Clean & Dry Additional Dressing/Incision Instructions:: Leave steri-strips in place for 1 week. Follow Up Care Please Follow Up With: Toni Griffin MD When: Please call [phone] for office appointment with Dr. Toni Griffin in approximately 10 days Discharge Plan Admission Primary Reason for Your Visit: hysterectomy Attending Provider: Jaylene Ang Primary Care Provider: Neyda Jimenez Consulting Providers: Toni Griffin Discharge Orders/Prescriptions Prescriptions: New oxycodone-acetaminophen [Percocet] 5-325 mg tablet 1 tab PO Q6H PRN (Reason: pain) 7 Days Qty: 20 RF: 0 naproxen [naproxen] 500 MG tablet 500 mg PO BID PRN PRN (Reason: Pain) Qty: 30 RF: 1 docusate sodium [Colace] 100 mg capsule 100 mg PO BID Qty: 60 RF: 0 Continued pimecrolimus [Elidel] 1 % cream 1 applic TOPICAL BID RF: 0 albuterol sulfate 2.5 mg /3 mL (0.083 %) solution for nebulization 2.5 mg INHALATION Q4H PRN (Reason: shortness of breath or wheezing) Qty: 180 RF: 6 fluoxetine [Prozac] 20 mg capsule 20 mg PO DAILY RF: 0 polyethylene glycol 3350 17 GM packet 17 gm PO DAILY RF: 0 levothyroxine 50 MCG tablet 50 mcg PO DAILY RF: 0 (DME) pediatric inhaler mask Qty: 1 RF: 0 (DME) spacer Qty: 1 RF: 0 No Action Mirena 20 mcg/24 hours (7 yrs) 52 mg intrauterine device 1 insert intrauterine ONCE RF: 0 Referrals / Follow Up: Neyda Jimenez MD [Primary Care Provider] - Disposition Disposition (needs filled in before D/C Order can be placed): Home, Self Care
[2021-04-23] MEDS: Bupivacaine 0.25% 30 ML Vial ×2 (10:59→12:00)
[2021-04-23] MEDS: Acetaminophen 500 MG Tablet 1000 MG PO (12:00)
[2021-04-23] MEDS: Lidocaine 1% (30 ml sdv) 30 ML Vial (12:00)
--- NOTE | 2021-04-23 12:09 | OP.PCM_ITS ---
Problems Associated Problem List Diagnoses (1) Subcutaneous mass: Report of Operation Date of Procedure: 04/23/21 Pre-Operative Diagnosis: Subcutaneous mass right scapular back Post-Operative Diagnosis: Subfascial mass right scapular back Surgery/Procedure Performed:: Excision 14 x 9 cm large right subfascial scapular mass Description of Surgical Findings:: Timeout informed consent was obtained. The patient had already undergone a gynecologic procedure by Dr. Jaylene Ang. She was then placed from her lithotomy position into a prone position with careful shoulder chest pelvic rolls. The right scapular back was sterilely prepped and draped with chlorhexidine. 1% lidocaine mixed 50-50 with 0.25% Marcaine was used as a local anesthetic a total of 40 cc was used. Local was instilled. A transverse incision was created. Sharp dissection carried down to the palpable mass but it appeared to be subfascial. Circumferential dissection was performed and attenuated fascia was encountered. This was partially opened and the multilobulated subfascial lipomatous mass was encountered using electrocautery dissection blunt dissection sharp dissection it was completely extracted. Several additional fragments were removed. The attenuated fascia was partially removed and submitted a specimen as well. The vast majority of the musculature was intact. Hemostasis was assured with interrupted 3-0 Vicryl sutures and electrocautery. The flaps were then completed to the thorax wall with multiple interrupted 3-0 Vicryl sutures. Bradford that he had very nice approximation and therefore could avoid placing a drain. Subdermal cutaneous tissues were approximated with the same. Skin edges were approximated running septic or 4-0 Monocryl. Steri- Strips Telfa OpSite bulky dry dressings applied. Sponge and instrument and needle counts were reported to the surgeon to be correct. Specimen 14 x 9 cm lipoma. Drains none. Blood loss 10 cc. The patient was taken to the recovery area in satisfactory addition without apparent complication Toni Griffin M.D., F.A.C.S. Surgeon: Toni Griffin Type of Anesthesia: General and Local Anesthesiologist: Wil Lennon
[2021-04-23] MEDS: Ketorolac 30 MG/ML Syringe IV (12:56)
[2021-04-23] MEDS: Lactated Ringers 1,000 ML 125 ML IV (14:13)
[2021-04-23 15:31] LABS: Hematocrit 39.7 % (37-47); Hemoglobin 13.5 g/dL (12.0-15.0); Mean Corpuscular Hgb 33.5 pg (27.0-32.0); Mean Corpuscular Volume 98.5 fL (81-99); Mean Platelet Vol. 9.4 fl (6.2-12.0); POSITIVE DIFFERENTIAL YES; Platelet Count 223 K/mm3 (150-450); RBC Distribution Width CV 12.3 % (11.6-14.6); RBC Distribution Width SD 44.8 fl (35.1-43.9); Red Blood Count 4.03 M/mm3 (4.2-5.4); White Blood Count 12.2 K/mm3 (4.4-11.0)
[2021-04-23 15:34] LABS: Scan Indicated on CBC? Y/N YES- FLAGS NOTED
[2021-04-23 16:22] LABS: Differential Comment SCANNED
== END 2021-04-23 23:59 | disposition home or self-care (01) ==
LOC: SDC 06:54 → AC 06:55
PROVIDERS: Anesthesiology; Surgery; PCP Internal Medicine; Referring Provider Obstetrics & Gynecology; Visit Provider Obstetrics & Gynecology
PROC: 0UT9FZZ Resection of Uterus, Via Natural or Artificial Opening With Percutaneous Endoscopic Assistance (ICD-10-PCS; CPT 58550; principal; 2021-04-23 08:30)
PROC: (CPT 21931; 2021-04-23 08:30)
DX: N93.9 Abnormal uterine and vaginal bleeding, unspecified (principal); I50.9 Heart failure, unspecified; E03.9 Hypothyroidism, unspecified; N94.6 Dysmenorrhea, unspecified; Q90.9 Down syndrome, unspecified; N88.8 Other specified noninflammatory disorders of cervix uteri; D17.1 Benign lipomatous neoplasm of skin and subcutaneous tissue of trunk; F41.9 Anxiety disorder, unspecified; Z79.899 Other long term (current) drug therapy; Z86.16 Personal history of COVID-19; J45.40 Moderate persistent asthma, uncomplicated; N94.3 Premenstrual tension syndrome
CPT/HCPCS: 58550; 21931; 80048; 81025; 82962; 83735; 85025; 85027; 86850; 86900; 86901; 88304; 88307; 93005; J7120; J2405

== ENCOUNTER → 2021-09-18 | Outpatient (CLI) | payer MEDICAID, SELFPAY ==
--- NOTE | 2021-09-19 10:13 | PFT ---
INTRODUCTION: The patient is a 25-year-old female that presents for pulmonary function studies secondary to a diagnosis of asthma. Respiratory therapy reported that PFTs were unable to be completed adequately due to an inability for the patient to follow instructions. INTERPRETATION: Spirometry and body plus tomography data are unable to be interpreted due to a lack of reproducibility on the account that the patient was unable to follow directions. IMPRESSION: Uninterpretable PFTs.
== END | disposition home or self-care (01) ==
LOC: PSN 09:17
PROVIDERS: PCP Internal Medicine; Referring Provider Clinical Nurse Specialist; Visit Provider Clinical Nurse Specialist
DX: J45.40 Moderate persistent asthma, uncomplicated (principal)
CPT/HCPCS: 94726